=== PATIENT | female | born 2000 | race Caucasian/White ===

== ENCOUNTER 2018-12-15 18:52 | Emergency (ER) | payer OTHER ==
[2018-12-15] MEDS ORDERED: ONDANSETRON ODT 4 MG TABLET TL STA (19:09)
--- NOTE | 2018-12-15 19:09 | ED Physician Documentation ---
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 No: LOC, AMS, Amnesia, Neck pain, Paresthesias, Seizures Symptoms improve with: Rest Symptoms worsen with: Palpation, Movement Contributing factors: No: Anticoagulated, Intoxicated Recently seen: Other ( ER last night, sutures placed in forehead. 15 sutures.) Review of Systems Constitutional: denies: Fever Eyes: reports: Photophobia. denies: Decreased vision Ears: denies: Ear pain Nose: denies: Rhinorrhea / runny nose, Congestion Cardiac: denies: Chest pain / pressure Respiratory: denies: Cough GI: denies: Vomiting Skin: denies: Rash Musculoskeletal: denies: Neck pain, Back pain Neurologic: denies: Focal weakness, Numbness, Confused, Altered mental status PD PAST MEDICAL HISTORY - Past Medical History Past Medical History: No - Past Surgical History Past Surgical History: Yes Ortho: ACL reconstruction - Present Medications Home Medications: Ambulatory Orders Medication Instructions Recorded Confirmed Minocycline HCl [Minocin] 100 mg PO DAILY 03/22/16 03/22/16 Ondansetron Odt [Zofran] 4 mg TL Q6H PRN #10 tablet 12/15/18 - Allergies Allergies/Adverse Reactions: Allergies Allergy/AdvReac Type Severity Reaction Status Date / Time No Known Drug Allergies Allergy Verified 03/22/16 08:46 - Social History Does the pt smoke?: No Smoking Status: Never smoker Does the pt drink ETOH?: No Does the pt have substance abuse?: No - Immunizations Immunizations are current?: Yes PD ED PE NORMAL - Vitals Vital signs reviewed: Yes - General General: Alert and oriented X 3, No acute distress, Well developed/nourished - HEENT HEENT: Atraumatic (no scalp hematomas or palpable skull fractures. ), PERRL, Moist mucous membranes, Other (large sutured laceration to the L forehead. 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, No motor deficit, No sensory deficit, Normal speech Eye Opening: Spontaneous Motor: Obeys Commands Verbal: Oriented GCS Score: 15 - Psych Psych: Normal mood, Normal affect Results - Vitals Vitals: Vital Signs - 24 hr 12/15/18 18:57 Temperature 36.2 C L Heart Rate 81 Respiratory 16 Rate Blood Pressure 129/75 O2 Saturation 100 Oxygen O2 Source Room air - Rads (name of study) Head CT Radiology: Prelim report reviewed, EMP read contemporaneously, See rad report (No acute intracranial abnormality) PD MEDICAL DECISION MAKING - ED course Complexity details: reviewed results, re-evaluated patient, considered differential, d/w patient, d/w family ED course: Patient with a concussion. No acute findings on head CT. Nausea vomiting resolved with Zofran. Will continue supportive care and follow-up with her doctor. Patient and family counseled regarding signs and symptoms for which I believe and urgent re-evaluation would be necessary. Patient with good understanding of and agreement to plan and is comfortable going home at this time This document was made in part using voice recognition software. While efforts are made to proofread this document, sound alike and grammatical errors may occur. Departure - Departure Disposition: 01 Home, Self Care Clinical Impression: Concussion Qualifiers: Encounter type: initial encounter Loss of consciousness presence/duration: without LOC Qualified Code(s): S06.0X0A - Concussion without loss of consciousness, initial encounter Condition: Good Instructions: ED Concussion Follow-Up: SVETLANA ODONNELL DO [Primary Care Provider] - Within 1 week Prescriptions: Ondansetron Odt [Zofran] 4 mg TL Q6H PRN #10 tablet PRN Reason: Nausea / Vomiting Comments: Return if you worsen. You can use the Zofran for nausea and vomiting. You can sleep and they do not need to wake you up. Your head CT is normal tonight. You will need to go through the concussion protocol before being cleared to return to play.
--- NOTE | 2018-12-15 20:26 | CT Report ---
Reason: head injury, vomiting. Procedure Date: 12/15/2018 Accession Number: [id number] / [id number] Procedure: CT - HEAD WO CPT Code: FULL RESULT: EXAM: CT HEAD EXAM DATE: 12/15/2018 08:00 PM. CLINICAL HISTORY: Head injury, vomiting. COMPARISON: None. TECHNIQUE: Multiaxial CT images were obtained from the foramen magnum to the vertex. Reformats: Sagittal and coronal. IV contrast: None. In accordance with CT protocol optimization, one or more of the following dose reduction techniques were utilized for this exam: automated exposure control, adjustment of mA and/or KV based on patient size, or use of iterative reconstructive technique. FINDINGS: Parenchyma: No intraparenchymal hemorrhage. No evidence of mass, midline shift, or CT findings of infarction. Vazquez-white differentiation is distinct. Extraaxial Spaces: Normal for age. No subdural or epidural collections identified. Ventricles: Normal in size and position. Sinuses and Orbits: Imaged paranasal sinuses, orbits, and mastoids show no significant abnormality. Bones: No evidence of fracture or calvarial defect. Other: None. IMPRESSION: No acute traumatic intracranial abnormality. [facility]
[2018-12-15 20:48] VITALS: BP 107/56
== END 2018-12-15 20:48 | disposition home or self-care (01) ==
LOC: ED 18:52
DX: S06.0X0A Concussion without loss of consciousness, initial encounter (principal); W50.0XXA Accidental hit or strike by another person, initial encounter; Y93.66 Activity, soccer; Y92.322 Soccer field as the place of occurrence of the external cause
CPT/HCPCS: 70450; 99284; Q0162